=== PATIENT | female | born 1960 | race Caucasian/White ===

== ENCOUNTER 2022-10-31 09:47 | Day surgery (SDC) | payer OTHER ==
[~2022-10-31] VITALS: Ht 172.7 cm; Wt 97.2 kg
[2022-10-31] MEDS ORDERED: ROCURONIUM BROMIDE 10 MG/ML (ZEMURON) IV ONE (10:56)
[2022-10-31] MEDS ORDERED: LIDOCAINE 2%, 20 ML MDV INJ ONE (10:56)
[2022-10-31] MEDS ORDERED: DESFLURANE 15 MIN GAS INH ONE (10:56)
[2022-10-31] MEDS ORDERED: WATER FOR IRRIGATION,STERILE 1,000 ML IRRIG.SOLN IR ONE (10:56)
[2022-10-31] MEDS ORDERED: DEXAMETHASONE SOD PHOSPHATE 4 MG/ML VIAL IVP ONE (10:56)
[2022-10-31] MEDS ORDERED: fentaNYL CITRATE 250 MCG/5 ML AMP IV ONE (10:56)
[2022-10-31] MEDS ORDERED: LEVOFLOXACIN 500 mg/D5W 100 mL IVPB IV ONE (10:56)
[2022-10-31] MEDS ORDERED: ONDANSETRON HCL 4 MG/2 ML VIAL IVP ONE (10:56)
[2022-10-31] MEDS ORDERED: NS IRRIG SOLN 1000 ML IR ONE (10:56)
[2022-10-31] MEDS ORDERED: PROPOFOL 200MG/ 20ML VIAL (DIPRIVAN) IV ONE (10:56)
[2022-10-31] MEDS ORDERED: MIDAZOLAM HCL 5 MG/5 ML VIAL IVP ONE (10:56)
[2022-10-31] MEDS ORDERED: LR 1,000 ML IV.SOLN IV ONE (10:56)
[2022-10-31] MEDS ORDERED: SUGAMMADEX SODIUM 200 MG/2 ML VIAL IV ONE (10:56)
[2022-10-31] MEDS ORDERED: NS 1000 ML IV.SOLN IV ONE (10:56)
[2022-10-31] MEDS ORDERED: MIDAZOLAM HCL 2 MG/2 ML VIAL (VERSED) IVP PRN (11:45)
[2022-10-31] MEDS ORDERED: METOCLOPRAMIDE HCL 10 MG/2 ML VIAL IVP PRN (11:45)
[2022-10-31] MEDS ORDERED: MEPERIDINE HCL/PF 25 MG/ML DISP.SYRIN IVP PRN (11:45)
[2022-10-31] MEDS ORDERED: hydrALAZINE HCL 20 MG/ML VIAL IVP PRN (11:45)
[2022-10-31] MEDS ORDERED: LR 1,000 ML IV SCH ×2 (11:45→12:00)
[2022-10-31] MEDS ORDERED: HYDROmorphone 1 MG/ML INJ. CARTRIDGE IVP PRN ×2 (11:45)
[2022-10-31] MEDS ORDERED: LABETALOL 100 MG/ 20ML VIAL IVP PRN (11:45)
[2022-10-31] MEDS ORDERED: ACETAMINOPHEN I.V. 1000 MG 100 ML IV ONE (12:07)
[2022-10-31] MEDS ORDERED: INSULIN REGULAR, HUMAN 100 UNITS/ML, 3 ML VIAL (humuLIN R) ONE (14:01)
[2022-10-31] MEDS ORDERED: INSULIN REGULAR, HUMAN 100 UNITS/ML, 3 ML VIAL SUBCUT ONE (14:15)
[2022-10-31 15:53] VITALS: BP_SYST 124
== END 2022-10-31 15:48 | disposition home or self-care (01) ==
LOC: SDS 09:47
PROVIDERS: ATTEND Otolaryngology
DX: D38.5 Neoplasm of uncertain behavior of other respiratory organs (principal); J32.4 Chronic pansinusitis; J32.0 Chronic maxillary sinusitis; I10 Essential (primary) hypertension; E11.9 Type 2 diabetes mellitus without complications; M19.90 Unspecified osteoarthritis, unspecified site; F32.A Depression, unspecified; I25.2 Old myocardial infarction; I25.10 Atherosclerotic heart disease of native coronary artery without angina pectoris; J45.909 Unspecified asthma, uncomplicated; Z79.899 Other long term (current) drug therapy; Z20.822 Contact with and (suspected) exposure to COVID-19
CPT/HCPCS: 36415 ×2; 31257; 30520; 31256; 31296; 82962; 87070; 87075; 87101; 88304; 88305; 88311; 87426; U0003; J3490; J1100; J1815; J1956; J2001; J2250; J2405; J2704; J3010; J7120; J7030; J0131; 82948; C1726